=== PATIENT | female | born 1945 | race Caucasian/White ===

== ENCOUNTER 2024-02-07 11:54 | Day surgery (SDC) | payer MEDICARE ==
[~2024-02-07] VITALS: Ht 180.3 cm; Wt 95.7 kg
[~2024-02-07 11:54] MED LIST: AMLO1TAB24 PO; ASPI81TA26 PO; EZET10TA21 PO; FAMO20TA PO; GLIM2TAB29 PO; JARD1TAB PO; METF10004 PO; OXYC1TAB23 PO; PHENYLEPHRINE 10% OPHTH SOL 5ML OD PRN; PROA1AER2 IN; VALS1TAB68 PO; VENL75CA47 PO
[2024-02-07] MEDS ORDERED: MIDAZOLAM INJ 2MG/2ML VIAL As Ordered ONE (13:04)
[2024-02-07] MEDS ORDERED: fentaNYL 100 MCG/2 ML INJECTION As Ordered ONE (13:04)
[2024-02-07] MEDS: LIDOCAINE 3.5 % 1ML OPHTH TOPICAL GEL OU ONE (13:33)
[2024-02-07] MEDS: OFLOXACIN 0.3 % (OCUFLOX) OPTH SOL 5ML OD ONE (13:33)
[2024-02-07] MEDS: TROPICAMIDE 1% OPHTH SOLN 15ML OD SCH (13:34)
[2024-02-07] MEDS: PHENYLEPHRINE 2.5% OPHTH SOL 2ML OD SCH (13:34)
[2024-02-07] MEDS: ATROPINE SULFATE 1% OPHTH SOLN 2ML BTL OD SCH (13:34)
[2024-02-07] MEDS: CEFUROXIME 1MG/0.1ML INTRACAMERAL INJ As Ordered ONE (13:56)
[2024-02-07] MEDS: LIDOCAINE 1% SDV 5ML VIAL As Ordered ONE (13:56)
[2024-02-07] MEDS: BSS IRRIG/VANCO(10MG)/TOBRA(5MG)/EPINEPH(1:1000-0.5CC)500ML BAG-ORONLY As Ordered ONE (13:56)
[2024-02-07 14:34] VITALS: BP 145/75; TEMP 97.9; O2SAT 95
== END 2024-02-07 14:34 | disposition home or self-care (01) ==
LOC: M SDC 11:54
PROVIDERS: ATTEND Ophthalmology
DX: E11.36 Type 2 diabetes mellitus with diabetic cataract (principal); H25.11 Age-related nuclear cataract, right eye; I10 Essential (primary) hypertension; J44.9 Chronic obstructive pulmonary disease, unspecified; E78.00 Pure hypercholesterolemia, unspecified; F17.210 Nicotine dependence, cigarettes, uncomplicated; Z79.899 Other long term (current) drug therapy; Z79.82 Long term (current) use of aspirin; Z79.84 Long term (current) use of oral hypoglycemic drugs
CPT/HCPCS: 66984; J0697; J2250; J3010; V2632

== ENCOUNTER 2024-03-06 11:13 | Day surgery (SDC) | payer MEDICARE ==
[~2024-03-06] VITALS: Ht 180.3 cm; Wt 96.8 kg
[~2024-03-06 11:13] MED LIST changes: +GLIM4TAB5 PO; -PHENYLEPHRINE 10% OPHTH SOL 5ML OD PRN; +PHENYLEPHRINE 10% OPHTH SOL 5ML OS PRN; +fentaNYL 100 MCG/2 ML INJECTION As Ordered ONE
[2024-03-06] MEDS: TROPICAMIDE 1% OPHTH SOLN 15ML OS SCH (12:00)
[2024-03-06] MEDS: LIDOCAINE 3.5 % 1ML OPHTH TOPICAL GEL OU ONE (12:00)
[2024-03-06] MEDS: OFLOXACIN 0.3 % (OCUFLOX) OPTH SOL 5ML OS ONE (12:00)
[2024-03-06] MEDS: PHENYLEPHRINE 2.5% OPHTH SOL 2ML OS SCH (12:00)
[2024-03-06] MEDS: ATROPINE SULFATE 1% OPHTH SOLN 2ML BTL OS SCH (12:00)
[2024-03-06] MEDS: CEFUROXIME 1MG/0.1ML INTRACAMERAL INJ As Ordered ONE (12:31)
[2024-03-06] MEDS: LIDOCAINE 1% SDV 5ML VIAL As Ordered ONE (12:31)
[2024-03-06] MEDS: BSS IRRIG/VANCO(10MG)/TOBRA(5MG)/EPINEPH(1:1000-0.5CC)500ML BAG-ORONLY As Ordered ONE (12:31)
[2024-03-06 12:37] VITALS: BP 142/72; TEMP 97.6; O2SAT 95
== END 2024-03-06 13:10 | disposition home or self-care (01) ==
LOC: M SDC 11:13
PROVIDERS: ATTEND Ophthalmology
DX: H25.12 Age-related nuclear cataract, left eye (principal); I10 Essential (primary) hypertension; E11.9 Type 2 diabetes mellitus without complications; E78.5 Hyperlipidemia, unspecified; Z79.82 Long term (current) use of aspirin; Z79.84 Long term (current) use of oral hypoglycemic drugs; Z79.51 Long term (current) use of inhaled steroids; Z79.899 Other long term (current) drug therapy; F17.218 Nicotine dependence, cigarettes, with other nicotine-induced disorders
CPT/HCPCS: 66984; J0697; J3010; V2632